=== PATIENT | female | born 1985 | race Caucasian/White ===

== ENCOUNTER 2021-09-28 15:16 | Emergency (ER) | payer SELFPAY ==
[2021-09-28 16:30] VITALS: BP 124/73; PULSE 72; RESP 19; TEMP 37; O2SAT 98; BMI 19.5
--- NOTE | 2021-09-28 17:02 | XR_ITS ---
PROCEDURE INFORMATION: Exam: XR Chest Exam date and time: 09/28/2021 5:02 PM Age: 36 years old Clinical indication: Other: Weight loss TECHNIQUE: Imaging protocol: XR of the chest. Views: 2 views. COMPARISON: No relevant prior studies available. FINDINGS: Lungs: No acute pulmonary findings. No pulmonary consolidation. Lung volumes within normal limits. Pleural spaces: Unremarkable. No significant pleural effusion. No pneumothorax. Heart/Mediastinum: The cardiomediastinal silhouette is normal. Bones/joints: Thoracolumbar scoliosis. No acute fracture or high-grade listhesis, as visualized. IMPRESSION: No acute findings.
--- NOTE | 2021-09-28 17:03 | HMH.EDUTC ---
[facility] [place] Disposition Clinical Impression: Weight loss, Anxiety Disposition: Home, Self-Care Condition on Discharge: Good Instructions: DI for Weight Loss Additional Instructions: follow up with ira kong follow up with pcp if any issues return or be seen in ed Referrals: Provider,Referral, [Primary Care Provider] - Time of Disposition: 18:07 Medical Decision Making - Prabhakar Inquiry Pt receiving controlled substance: No Vital Signs: 09/28/21 16:30 09/28/21 17:14 Temperature 98.6 F 98.6 F Temperature Source Oral Pulse Rate 72 Pulse Rate [Right Brachial] 72 Respiratory Rate 19 19 Blood Pressure 124/73 Blood Pressure [Right Arm] 124/73 Blood Pressure Mean [Right Arm] 90 Blood Pressure Source [Right Arm] Automatic Cuff Blood Pressure Position [Right Arm] Sitting 02 Sat by Pulse Oximetry 98 Oxygen Delivery Method Room Air - Lab Data Lab Results 09/28/21 17:10: WBC 8.3, RBC 4.66, Hgb 13.9, Hct 42.9, MCV 92.0, MCH 29.9, MCHC 32.4, RDW 13.9, Plt Count 313, MPV 8.1, Neut % (Auto) 64.1, Lymph % (Auto) 27.4, [place] % (Auto) 6.1, Eos % (Auto) 1.6, Baso % (Auto) 0.8, Neut # (Auto) 5.3, Lymph # (Auto) 2.3, [place] # (Auto) 0.5, Eos # (Auto) 0.1, Baso # (Auto) 0.1 09/28/21 17:10: Sodium 141, Potassium 4.1, Chloride 104, Carbon Dioxide 29, Anion Gap 12.1, BUN 11, Creatinine 0.70, Estimated Creat Clear 101, Estimated GFR 96, Est GFR ( Amer) 116, Glucose 70 L, Calcium 9.2, Total Bilirubin 0.5, AST 35, ALT 19, Alkaline Phosphatase 39, Total Protein 7.5, Albumin 4.8, Globulin 2.7, Albumin/Globulin Ratio 1.8 09/28/21 17:10: Serum HCG, Qual Negative Result diagrams: 09/28/21 17:10 09/28/21 17:10 Orders (Tests/Meds): ORDERS Category Date Time Status Comprehensive Metabolic Panel Stat Lab 09/28/21 17:10 Results T4 (Thyroxine) Stat Lab 09/28/21 17:10 Results Thyroid Stimulating Hormone Stat Lab 09/28/21 17:10 Results [facility] [place] HPI - General Chief complaint: Urgent Treatment Center Stated complaint: Weakness Time Seen by Provider: 09/28/21 17:03 Mode of Arrival: Ambulatory Source of Information: Patient Limitations: No Limitations Description of Symptoms (Recalled from Triage Doc. by RN): PATIENT FATIGUE, ANXIOUS, AND WEAKNESS X 4 DAYS HEENT Symptoms (Recalled from RN notes): No Resp Symptoms (Recalled from RN notes): No Skin Symptoms (Recalled from RN notes): No MS Symptoms (Recalled from RN notes): No Functional Status (Recalled from RN notes): WNL - History of Present Illness Provider Complaint: 36 yr old female presnets for tiredness, wt loss, worsing anxiety and depression-going though issues with boy friend.no si or hi - Related Data Allergies Allergy/AdvReac Type Severity Reaction Status Date / Time No Known Allergies Allergy Verified 09/28/21 16:57 - Worker's Comp Is this a Worker's Comp case?: No [facility] History - Hepatitis A Screen Drug use history?: No High risk sexual behaviors?: No History of sexually transmitted infection?: No Currently employed?: No Childcare worker?: No Do you have indoor plumbing?: Yes Do you have electricity?: Yes Attestation statement:: This patient has been screened for Hepatitis A risk factors. I have reviewed the patient's past medical history: Yes ROS Obtained: Yes Systems reviewed as appropriate & no additional complaints - Constitutional Constitutional: Reports system reviewed and no additional complaints, except as docu, Denies chills, Reports fatigue, Reports weakness - Eyes Eyes: Reports system reviewed and no additional complaints, except as docu, Denies dry eyes - ENT Ears, Nose, Mouth, and Throat: Reports system reviewed and no additional complaints, except as docu, Denies sore throat - Cardiovascular Cardiovascular: Reports system reviewed and no additional complaints, except as docu, Denies chest pain - Respiratory Respiratory: Reports system reviewed and no additional complaints, except as docu, Denies cough
[2021-09-28 17:14] VITALS: BP 124/73; PULSE 72; RESP 19; TEMP 37; O2SAT 98
[2021-09-28 17:48] LABS: Basophils # 0.1 K/mm3 (0-0.2); Basophils % 0.8 % (0.1-2.0); Eosinophils # 0.1 K/mm3 (0.0-0.4); Eosinophils % 1.6 % (0.1-12.0); Hematocrit 42.9 % (37.0-47.0); Hemoglobin 13.9 g/dL (12.2-16.2); Lymphocytes # 2.3 K/mm3 (0.7-4.5); Lymphocytes % 27.4 % (10-50); Mean Corpuscular HGB Conc 32.4 g/dL (31.8-35.4); Mean Corpuscular Hemoglobin 29.9 pg (27.0-31.2); Mean Platelet Volume 8.1 fl (7.4-10.4); Monocytes # 0.5 K/mm3 (0.1-1.0); Monocytes % 6.1 % (1.7-9.3); Neutrophils # 5.3 K/mm3 (1.8-7.8); Neutrophils % 64.1 % (37.0-80.0); Platelet Count 313 K/mm3 (142-424); Red Blood Count 4.66 M/mm3 (4.20-5.40); Red Cell Distribution Width 13.9 % (11.5-17.5); White Blood Count 8.3 K/mm3 (4.8-10.8)
[2021-09-28 17:54] LABS: Alanine Aminotransferase 19 U/L (12-78); Albumin Level 4.8 g/dl (3.5-5.0); Albumin/Globulin Ratio 1.8 (1.1-1.8); Alkaline Phosphatase 39 U/L (38-126); Anion Gap 12.1 mEq/L (5-15); Aspartate Amino Transferase 35 U/L (14-36); Bilirubin,Total 0.5 mg/dl (0.2-1.3); Blood Urea Nitrogen 11 mg/dl (7-17); Calcium 9.2 mg/dl (8.4-10.2); Carbon Dioxide 29 mmol/L (22.0-30.0); Chloride 104 mmol/L (98-107); Creatinine Clearance Estimated 101 mL/min (50-200); Estimated Glomerular Filt Rate 96 ml/min (>60); GFR (African American) 116 ML/MIN (>60); Globulin 2.7 g/dL (1.3-3.2); Glucose 70 mg/dl (74-100); Potassium 4.1 mmoL/L (3.5-5.1); Sodium 141 mmol/L (136-145); Total Protein,Serum 7.5 g/dl (6.3-8.2)
[2021-09-28 17:58] LABS: HCG Qualitative, Serum Negative (Negative)
[2021-09-28 18:12] LABS: T4 (Thyroxine) 9.6 ug/dl (5.53-11.0)
[2021-09-28 18:26] LABS: Thyroid Stimulating Hormone 0.63 uIU/mL (0.465-4.68)
== END 2021-09-28 18:26 | disposition home or self-care (01) ==
PROVIDERS: Emergency Provider Nurse Practitioner Family
DX: R63.4 Abnormal weight loss (principal); R53.1 Weakness; F41.8 Other specified anxiety disorders
CPT/HCPCS: 71046; 80053; 84436; 84443; 84703; 85025; 99202; G0463